=== PATIENT | female | born 1995 | race Caucasian/White ===

== ENCOUNTER 2016-09-02 15:20 | Outpatient (CLI) | payer MEDICAID ==
[~2016-09-02] VITALS: Ht 160 cm; Wt 78.6 kg
[~2016-09-02 15:20] MED LIST: ACET500C5 PO; PREN1TAB49; [UNRECOGNIZED DRUG - REMARK]
--- NOTE | 2016-09-02 16:50 | RADRPT ---
PROCEDURE: OB ultrasound for Biophysical Profile. CLINICAL INDICATION: induced hypertension. TECHNIQUE: Multiple sonographic images of the gravid uterus were obtained. COMPARISON: 05/18/2016. FINDINGS: There is a single live intrauterine in cephalic presentation with heart motion of 14 4 beats per minute. GIRISH is 18.04 cm, which is within normal limits. The placenta is located within the fundus and is without evidence of previa or abruption. Biophysical profile is as follows: Movement: 2 Tone:2 Breathin Fluid:2 IMPRESSION: Normal biophysical profile. RPTAT: HLST .Chante Ponce MD, Date Time Electronically viewed and signed by .Chante Ponce MD, MD on 09/02/2016 16:49 .T/
[2016-09-02 17:02] VITALS: Ht 160 cm; Wt 78.6 kg
[2016-09-02 17:03] VITALS: BP 139/83; PULSE 100; RESP 18
[2016-09-02 17:16] LABS: BASOPHILS % 0.1 % (0.0-2.0); EOSINOPHILS # 0.1 10^3/ul (0.0-0.5); EOSINOPHILS % 0.9 % (0.0-7.0); HEMATOCRIT 32.6 % (37.0-47.0); HEMOGLOBIN 11.2 g/dl (12.0-16.0); LYMPHOCYTES # 1.4 10^3/ul (0.8-2.9); LYMPHOCYTES % 17.2 % (15.0-51.0); MEAN CORPUSCULAR HEMOGLOBIN 29.8 pg (29.0-33.0); MEAN CORPUSCULAR HGB CONC 34.3 g/dl (32.0-37.0); MEAN CORPUSCULAR VOLUME 86.8 fl (82.0-101.0); MEAN PLATELET VOLUME 10.3 fl (7.4-10.4); MONOCYTE # 0.6 10^3/ul (0.3-0.9); MONOCYTES % 7.8 % (0.0-11.0); NEUTROPHIL # 6.1 10^3/ul (1.6-7.5); PLATELET COUNT 121 10^3/UL (140-440); RED BLOOD COUNT 3.76 10^6/ul (4.20-5.40); RED CELL DISTRIBUTION WIDTH 13.6 % (11.5-14.5); UNCORRECTED WBC 8.3 10^3/ul (4.8-10.8); WHITE BLOOD COUNT 8.3 10^3/ul (4.8-10.8)
[2016-09-02 17:17] LABS: CONDITION 1
[2016-09-02 17:24] LABS: ALBUMIN 3.2 g/dl (3.3-4.9)
[2016-09-02 17:26] LABS: ADD UMIC YES; URINE BILIRUBIN (Dip) NEGATIVE (NEGATIVE); URINE BLOOD (Dip) TRACE (NEGATIVE); URINE GLUCOSE (Dip) NEGATIVE (NEGATIVE); URINE KETONES (Dip) NEGATIVE (NEGATIVE); URINE LEUKOCYTE ESTERASE (Dip) 1+ (NEGATIVE); URINE NITRITE (Dip) NEGATIVE (NEGATIVE); URINE TOTAL PROTEIN (Dip) 1+ (NEGATIVE); URINE UROBILINOGEN (Dip) 0.2 E.U./dL (0.1-1.0)
[2016-09-02 17:27] LABS: BILIRUBIN,INDIRECT 0.2 mg/dl (0-1.1); BILIRUBIN,TOTAL 0.2 mg/dl (0.2-1.3); CREATININE 0.65 mg/dl (0.44-1.00)
[2016-09-02 17:28] LABS: ALBUMIN/GLOBULIN RATIO 1.06; CALCIUM 8.8 mg/dl (8.4-10.2); TOTAL PROTEIN 6.2 g/dl (6.1-8.1); URIC ACID 5.6 mg/dl (3.1-7.9)
[2016-09-02 17:52] LABS: URINE COLOR YELLOW (YELLOW)
[2016-09-02 17:53] LABS: BACTERIA,URINE MODERATE; SQUAMOUS EPITHELIAL CELL,UR MANY; URINE RBCS 0-2 /HPF (0)
== END 2016-09-02 18:27 | disposition home or self-care (01) ==
LOC: L-D 15:20 → OBT 15:20
PROVIDERS: ATTEND Obstetrics & Gynecology
DX: O26.893 Other specified pregnancy related conditions, third trimester (principal); R03.0 Elevated blood-pressure reading, without diagnosis of hypertension; Z3A.36 36 weeks gestation of pregnancy
CPT/HCPCS: 36415; 76818; 80053; 81001; 84560; 85025; Z7500; 81003; G0463

== ENCOUNTER 2016-09-03 17:49 | Outpatient (CLI) | payer MEDICAID ==
[~2016-09-03] VITALS: Ht 160 cm; Wt 79.2 kg
[2016-09-03 18:04] VITALS: BP 139/85; PULSE 81; RESP 20; Ht 160 cm; Wt 79.2 kg
[2016-09-04 16:19] LABS: SCRET 0.65 mg/dl (0.44-1.00)
== END 2016-09-03 18:50 | disposition home or self-care (01) ==
LOC: OBT 17:49 → L-D 17:49 → OBT 18:50
PROVIDERS: ATTEND Obstetrics & Gynecology
DX: O26.893 Other specified pregnancy related conditions, third trimester (principal); R03.0 Elevated blood-pressure reading, without diagnosis of hypertension; Z3A.36 36 weeks gestation of pregnancy
CPT/HCPCS: 82575

== ENCOUNTER 2016-09-05 10:45 | Inpatient (IN) | payer MEDICAID ==
[~2016-09-05] VITALS: Ht 160 cm; Wt 78.4 kg
[~2016-09-05 10:45] MED LIST changes: -ACET500C5 PO; -[UNRECOGNIZED DRUG - REMARK]
[2016-09-05 10:49] VITALS: RESP 19; Ht 160 cm; Wt 78.4 kg
--- NOTE | 2016-09-05 11:38 | RADRPT ---
PROCEDURE: OB ultrasound for biophysical profile CLINICAL INDICATION: Hypertension. Biophysical profile. . TECHNIQUE: Multiple sonographic images of the pelvis were obtained. Transabdominal view of the gr avid uterus are available for review. The images were reviewed on a PACS workstation. COMPARISON: 09/02/2016 FINDINGS: breathing movement = 2/2 tone = 2/2 motion = 2/2 GIRISH = 2/2 GIRISH = 13.6 cm Single intrauterine gestation is identified in cephalic position. Placenta is fundal without evidenc e for abruption or previa. heart rate is 146 bpm. IMPRESSION: 1. Single live intrauterine gestation. 2. Biophysical profile = 8/8. 3. GIRISH = 13.6 cm. RPTAT: PP .Pipo Joshi MD, Date Time Electronically viewed and signed by .Pipo Joshi MD, on 09/05/2016 11:37 .R/
[2016-09-05 11:39] LABS: BASOPHILS % 0.3 % (0.0-2.0); EOSINOPHILS # 0.1 10^3/ul (0.0-0.5); EOSINOPHILS % 0.9 % (0.0-7.0); HEMATOCRIT 35.1 % (37.0-47.0); HEMOGLOBIN 11.9 g/dl (12.0-16.0); LYMPHOCYTES # 1.6 10^3/ul (0.8-2.9); MEAN CORPUSCULAR HEMOGLOBIN 29.5 pg (29.0-33.0); MEAN CORPUSCULAR HGB CONC 33.9 g/dl (32.0-37.0); MEAN PLATELET VOLUME 10.4 fl (7.4-10.4); MONOCYTE # 0.8 10^3/ul (0.3-0.9); MONOCYTES % 8.7 % (0.0-11.0); NEUTROPHIL # 6.5 10^3/ul (1.6-7.5); NEUTROPHILS % 72.1 % (39.0-77.0); PLATELET COUNT 130 10^3/UL (140-440); RED BLOOD COUNT 4.03 10^6/ul (4.20-5.40); RED CELL DISTRIBUTION WIDTH 13.8 % (11.5-14.5); UNCORRECTED WBC 9.1 10^3/ul (4.8-10.8); WHITE BLOOD COUNT 9.1 10^3/ul (4.8-10.8)
[2016-09-05 11:40] LABS: CONDITION 1
[2016-09-05 11:47] LABS: INR 0.9; PROTIME 12.1 Sec (12.2-14.2); PT RATIO 0.9
[2016-09-05 11:48] LABS: ALBUMIN 3.2 g/dl (3.3-4.9)
[2016-09-05 11:49] LABS: POTASSIUM 4.3 mmol/L (3.5-5.1)
[2016-09-05 11:51] LABS: ALBUMIN/GLOBULIN RATIO 1.03; BILIRUBIN,INDIRECT 0.2 mg/dl (0-1.1); BILIRUBIN,TOTAL 0.2 mg/dl (0.2-1.3); CREATININE 0.57 mg/dl (0.44-1.00); TOTAL PROTEIN 6.3 g/dl (6.1-8.1)
[2016-09-05 11:52] LABS: CALCIUM 8.8 mg/dl (8.4-10.2); URIC ACID 5.4 mg/dl (3.1-7.9)
[2016-09-05 11:55] LABS: PARTIAL THROMBOPLASTIN TIME 24.7 Sec (25.0-35.0)
[2016-09-05 12:03] LABS: ADD UMIC YES; URINE BILIRUBIN (Dip) NEGATIVE (NEGATIVE); URINE BLOOD (Dip) TRACE (NEGATIVE); URINE COLOR LT. YELLOW (YELLOW); URINE GLUCOSE (Dip) NEGATIVE (NEGATIVE); URINE KETONES (Dip) NEGATIVE (NEGATIVE); URINE LEUKOCYTE ESTERASE (Dip) 2+ (NEGATIVE); URINE NITRITE (Dip) POSITIVE (NEGATIVE); URINE TOTAL PROTEIN (Dip) 1+ (NEGATIVE); URINE UROBILINOGEN (Dip) 0.2 E.U./dL (0.1-1.0)
--- NOTE | 2016-09-05 12:19 | TRIAGE ---
OB Triage Datetime Report Generated by CPN: 09/05/2016 12:18 Datetime: 09/05/2016 11:44 Stage of : OB Triage Maternal Assessment Level of Consciousness: Fully Conscious DTR's/Clonus: DTRs 1+ Headache: Denies Nausea/Vomiting: Denies RUQ Epigastric Pain: Denies Labor Evaluation Frequency: IRREGULAR (Annotations: WITH SOME IRRITABILITY) Monitor Mode: External Quality: Mild Pattern: Normal: <= 5 Contractions in 10 Minutes Resting Tone Dowling: Relaxed Heart Rate FHR Baseline Rate: 135 Monitor Mode: External US Variability: Moderate 6-25 bpm Accelerations: 15X15 Decelerations: None Category: Category I Pain Assessment Pain Scale: 0 Pain Presence: None/Denies Pain Type: N/A Pain Goal: 3 Membrane Status: Intact Datetime: 09/05/2016 11:33 Vaginal Exam Dilatation (cms): 0.0 Effacement (%): 0 Station: -4 Exam By: RRAMIREZ,RN Vaginal Bleeding: None Cervix, Consistency: Firm Cervix, Position: Posterior Datetime: 09/05/2016 11:30 Stage of : OB Triage Maternal Assessment Level of Consciousness: Fully Conscious DTR's/Clonus: DTRs 1+ Headache: Denies Nausea/Vomiting: Denies RUQ Epigastric Pain: Denies Labor Evaluation Frequency: IRREGULAR Monitor Mode: External Quality: Mild Pattern: Normal: <= 5 Contractions in 10 Minutes Resting Tone Dowling: Relaxed Heart Rate FHR Baseline Rate: 135 Monitor Mode: External US Variability: Moderate 6-25 bpm Accelerations: 15X15 Decelerations: None Category: Category I Pain Assessment Pain Scale: 0 Pain Presence: None/Denies Pain Type: N/A Pain Goal: 3 Membrane Status: Intact Datetime: 09/05/2016 11:00 Maternal Assessment Level of Consciousness: Fully Conscious DTR's/Clonus: DTRs 1+ Headache: Denies Blurred Vision: No Nausea/Vomiting: Denies RUQ Epigastric Pain: Denies Facial Edema: None Labor Evaluation Frequency: IRRITABULITY Monitor Mode: External Duration (sec)2399: 20-30 Quality: Mild Pattern: Normal: <= 5 Contractions in 10 Minutes Resting Tone Dowling: Relaxed Heart Rate FHR Baseline Rate: 135 Monitor Mode: External US Variability: Moderate 6-25 bpm Accelerations: 15X15 Decelerations: None Category: Category I Pain Assessment Pain Scale: 0 Pain Presence: None/Denies Pain Type: N/A Pain Goal: 3 Membrane Status: Intact Datetime: 09/05/2016 10:48 Assessment Type: Triage Maternal Assessment Level of Consciousness: Fully Conscious DTR's/Clonus: DTRs 2+; No Clonus Headache: Denies Blurred Vision: No Respiratory Effort: Unlabored; Regular Rhythm; Equal Expansion Breath Sounds, Left: Clear and Equal Breath Sounds, Right: Clear and Equal Nausea/Vomiting: Denies RUQ Epigastric Pain: Denies Lower Extremities Edema: None Degree: None Upper Extremities Edema: None Degree: None Facial Edema: None Fall Risk Assessment History of Falling: (0) No Secondary Diagnosis: (0) No Ambulatory Aid: (0) Bedrest/Nurse Assist IV Therapy: (0) No Gait: (0) Normal/Bedrest/Immobile Mental Status: (0) Oriented to Own Ability Fall Score: 0 Fall Risk Score Definition: No Risk: No action required Datetime: 09/05/2016 10:40 Time of Arrival: 09/05/2016 10:47 EGA: 36.5 Arrived By: Ambulatory Arrived From: Home Chief Complaint: PT CAME IN FOR 24HR URINE RESULTS DUE TO HIGH BLOOD PRESSURE IN THE PREVIOUS VISI TS. PT DENIES ANY SWELLING, HEADACHE, EPIGASTRIC PAIN OR ANY GENERALIZED SWELLING AT THIS TIME. Movement: Present Contractions: Denies/Absent Rupture of Membranes: Denies Vaginal Discharge: Denies Recent Sexual Intercouse: Denies Abdominal Trauma: Not Applicable Patient Complaints: Other Additional Patient Complaints: NONE Time Provider Notified: 09/05/2016 11:00 Provider Notified: [facility] Initial Plan: MONITOR AND BPP Datetime: 09/03/2016 17:58 Assessment Type: Triage Maternal Assessment Level of Consciousness: Fully Conscious Maternal Assessment Level of Consciousness: Fully Conscious DTR's/Clonus: DTRs 2+ DTR's/Clonus: DTRs 2+; No Clonus Headache: Denies Headache: Denies Blurred Vision: No Blurred Vision: No Respiratory Effort: Unlabored; Regular Rhythm; Equal Expansion Breath Sounds, Left: Clear and Equal Breath Sounds, Right: Clear and Equal Nausea/Vomiting: Denies Nausea/Vomiting: Denies RUQ Epigastric Pain: Denies RUQ Epigastric Pain: Denies Lower Extremities Edema: Bilateral Lower Extremities Degree: 1+ Upper Extremities Edema: None Facial Edema: None Facial Edema: None Fall Risk Assessment History of Falling: (0) No Secondary Diagnosis: (0) No Ambulatory Aid: (0) Bedrest/Nurse Assist IV Therapy: (0) No Gait: (0) Normal/Bedrest/Immobile Mental Status: (0) Oriented to Own Ability Fall Score: 0 Fall Risk Score Definition: No Risk: No action required Pain Presence: None/Denies Datetime: 09/02/2016 18:19 Time of Arrival: 09/03/2016 17:45 EGA: 36.3 Chief Complaint: 24 hour urine collection Movement: Present Contractions: Denies/Absent Rupture of Membranes: Denies Vaginal Bleeding: None Vaginal Discharge: Denies Recent Sexual Intercouse: Denies Abdominal Trauma: Not Applicable Patient Complaints: None Time Provider Notified: 09/03/2016 18:20 Provider Notified: [facility] Datetime: 09/02/2016 16:37 Monitor Mode: External US Datetime: 09/02/2016 16:24 Stage of : OB Triage Labor Evaluation Frequency: irregular Monitor Mode: External Duration (sec)2399: 40-60 Quality: Mild Resting Tone Dowling: Relaxed Heart Rate FHR Baseline Rate: 135 Monitor Mode: External US Variability: Moderate 6-25 bpm Accelerations: 15X15 Decelerations: None Category: Category I Datetime: 09/02/2016 15:39 Assessment Type: Triage Maternal Assessment Level of Consciousness: Fully Conscious DTR's/Clonus: DTRs 2+; No Clonus Headache: Denies Blurred Vision: No Respiratory Effort: Unlabored Breath Sounds, Left: Clear and Equal Breath Sounds, Right: Clear and Equal Nausea/Vomiting: Denies RUQ Epigastric Pain: Denies Lower Extremities Edema: None Degree: None Upper Extremities Edema: None Degree: None Facial Edema: None Fall Risk Assessment History of Falling: (0) No Secondary Diagnosis: (0) No Ambulatory Aid: (0) Bedrest/Nurse Assist IV Therapy: (0) No Gait: (0) Normal/Bedrest/Immobile Mental Status: (0) Oriented to Own Ability Fall Score: 0 Fall Risk Score Definition: No Risk: No action required Datetime: 09/02/2016 15:35 Time of Arrival: 09/02/2016 15:13 EGA: 36.2 Arrived By: Ambulatory Arrived From: Dr. Hughes Chief Complaint: Sent from clinic to r/o [facility] Movement: Present Contractions: Denies/Absent Rupture of Membranes: Denies Vaginal Bleeding: None Vaginal Discharge: Denies Recent Sexual Intercouse: Denies Abdominal Trauma: Not Applicable Patient Complaints: Other Time Provider Notified: 09/02/2016 15:45 Provider Notified: [facility] Initial Plan: VS, EFM, BP STUDIES, BPP, CBC, CMP, URIC ACID, UA Datetime: 09/02/2016 15:30 Stage of : OB Triage Monitor Mode: External Monitor Mode: External US Datetime: 09/02/2016 15:27 Stage of : OB Triage
[2016-09-05 12:40] LABS: SQUAMOUS EPITHELIAL CELL,UR MODERATE; URINE RBCS 0-2 /HPF (0)
[2016-09-05 12:41] LABS: BACTERIA,URINE MODERATE
[2016-09-05] MEDS: LACTATED RINGER'S 1,000 ML IV SCH ×2 (13:05→19:59)
[2016-09-05 13:58] LABS: FIBRIN SPLIT PRODUCT <10 ug/ml (<10)
--- NOTE | 2016-09-05 18:12 | HP ---
Date/Time of Note Date/Time of Note DATE: 09/05/16 TIME: 18:03 OB - History Hx of Present Free Text/Dictation 21 years old female 4 AB 3 P0 with EDC of 09/28/16 admitted to [facility] referred from [facility] for rule out PIH' this patient has been under the care of the [facility] recently she has developed elevated blood pressure low platelet referred to [facility] for PIH for Chief Complaint: 36 weeks 5 day rule out -induced hypertension Estimated Due Date: Sep 28, 2016 : 4 Para: 0 Therapeutic : 3 Care: Limited Care Ultrasounds: Other (unavailable) Obstetrical Complications: Gestational Hypertension Medical Complications: None Past Family/Social History * Past Medical, Surgical, Family and Obstetric Histories reviewed from chart. Rubella: immune RPR/VDRL: Negative GBS Status: Unknown HBsAG: Unknown OB Admission Exam Vital Signs Vital Signs Vital Signs Date Time Temp Pulse Resp B/P Pulse Ox O2 Delivery O2 Flow Rate FiO2 09/05/16 10:49 98.3 19 99 Room Air Physical Exam HEENT: WNL Heart: Rhythm Normal Lungs: Clear, Equal Abdomen: WNL Extremities: Normal Reflexes: Normal Cervical Dilatation: None Effacement: 0% Station: -2 Heart Rate: 130's Accelerations: Accelerations Present Decelerations: No Decelerations Varibility: Moderate Contractions on Admission: >10 Minutes Apart Intensity: Mild Last 72 hours Lab Results CBC & BMP 09/05/16 11:00 Liver Function Test 09/05/16 11:00 Alanine Aminotransferase (ALT/SGPT) 24 Albumin 3.2 L Alkaline Phosphatase 190 H Aspartate Amino Transf (AST/SGOT) 27 Direct Bilirubin 0.00 Total Protein 6.3 LESLI TRIPLETT MD Sep 05, 2016 18:12
--- NOTE | 2016-09-05 18:17 | PN ---
Date/Time of Note Date/Time of Note DATE: 09/05/16 TIME: 18:13 OB Subjective Subjective Subjective Patient sitting in her bed having dinner has no complain of headache blurry vision or gastric pain monitor indicating at the recovery 1 heart tracing her last blood pressure 142/92, telephone perinatology consult recommended repeat platelet count in the morning if if number is declining attempt for the delivery otherwise recommend delivery at 37 weeks LESLI TRIPLETT MD Sep 05, 2016 18:17
[2016-09-06] MEDS: LACTATED RINGER'S 1,000 ML IV SCH ×4 (03:52→23:17)
[2016-09-06 06:30] LABS: BASOPHILS % 0.3 % (0.0-2.0); EOSINOPHILS # 0.1 10^3/ul (0.0-0.5); EOSINOPHILS % 0.6 % (0.0-7.0); HEMATOCRIT 34.8 % (37.0-47.0); HEMOGLOBIN 11.9 g/dl (12.0-16.0); LYMPHOCYTES # 1.4 10^3/ul (0.8-2.9); LYMPHOCYTES % 12.3 % (15.0-51.0); MEAN CORPUSCULAR HEMOGLOBIN 29.8 pg (29.0-33.0); MEAN CORPUSCULAR HGB CONC 34.2 g/dl (32.0-37.0); MEAN PLATELET VOLUME 10.3 fl (7.4-10.4); MONOCYTE # 0.7 10^3/ul (0.3-0.9); MONOCYTES % 6.6 % (0.0-11.0); NEUTROPHILS % 80.2 % (39.0-77.0); PLATELET COUNT 121 10^3/UL (140-440); RED CELL DISTRIBUTION WIDTH 13.4 % (11.5-14.5); UNCORRECTED WBC 11.2 10^3/ul (4.8-10.8); WHITE BLOOD COUNT 11.2 10^3/ul (4.8-10.8)
[2016-09-06 06:36] LABS: CONDITION 1
[2016-09-06] MEDS ORDERED: DOCUSATE SODIUM 100 MG CAP PO SCH (09:00)
[2016-09-06] MEDS ORDERED: MULTIVIT/MIN/FOLATE/IRON/PREN TAB PO SCH (09:00)
[2016-09-06] MEDS ORDERED: FERROUS SULFATE (EC) 325 MG TAB PO SCH (09:00)
--- NOTE | 2016-09-06 09:16 | RADRPT ---
PROCEDURE: US OB. CLINICAL INDICATION: Size and dates , hypertension TECHNIQUE: Multiple sonographic images of the pelvis and gravid uterus were obtained. The images were reviewed on a PACS workstation. COMPARISON: 09/05/2016 FINDINGS: There is a single viable intrauterine gestation. Cardiac activity is present with 140 beats per min francesca. There is a vertex presentation. The placenta is fundal. There is no evidence for an abruption or placenta previa. Measurements were made in order to determine age. The results are as follows: BPD =8.9 cm HC =31.8 cm AC =32.6 cm FL =6.8 cm Estimated gestational age of approximately 35 weeks and 5 days based on ultrasound measurements. Clinical age: 37 weeks and 3 days. The estimated date of delivery is 10/06/16, based on ultrasound measurements. The EFW = 2804 g, 21.3%, based on LMP age. RPTAT: AA IMPRESSION: Single viable intrauterine gestation of approximately 35 weeks and 5 days based on ultrasound measu rements. .Farooq Ly MD, Date Time Electronically viewed and signed by .Farooq Ly MD, on 09/06/2016 09:15 .S/
[2016-09-06] MEDS ORDERED: LIDOCAINE 1% (MPF) 30 ML INJ INJ PRN (09:30)
[2016-09-06] MEDS ORDERED: METHYLERGONOVINE 0.2 MG INJ IM PRN (09:30)
[2016-09-06] MEDS ORDERED: ACETAMINOPHEN/CODEINE #3 TAB PO PRN (09:30)
[2016-09-06] MEDS ORDERED: OXYTOCIN 30 UNITS/LR 500 ML IV PRN (09:30)
[2016-09-06] MEDS ORDERED: IBUPROFEN 600 MG TAB PO PRN (09:30)
[2016-09-06] MEDS ORDERED: OXYCODONE/ASPIRIN (4.88/325) TAB PO PRN (09:30)
[2016-09-06] MEDS ORDERED: OXYTOCIN 30 UNITS/LR 500 ML IV SCH ×2 (09:30)
[2016-09-06] MEDS ORDERED: CARBOPROST 250 MCG INJ IM PRN (09:30)
[2016-09-06] MEDS ORDERED: MISOPROSTOL 200 MCG TAB PR PRN (09:30)
[2016-09-06] MEDS ORDERED: DINOPROSTONE 10 MG VAG SUPP VAG ONE ×2 (10:00→23:30)
[2016-09-06] MEDS ORDERED: AMPICILLIN 2 GM/NS (PMX) 100 ML IV ONE (10:00)
[2016-09-06] MEDS ORDERED: LACTATED RINGER'S 1,000 ML IV PRN (13:00)
[2016-09-06] MEDS: AMPICILLIN 1 GM/NS (PMX) 50 ML IV SCH ×3 (15:49→21:58)
[2016-09-06] MEDS ORDERED: MAGNESIUM SULFATE 4 GM/100 ML 100 ML ONE (18:08)
[2016-09-06] MEDS ORDERED: MAGNESIUM SULFATE 4 GM/100 ML 100 ML IVPB ONE (18:30)
[2016-09-06] MEDS: MAGNESIUM SULFATE 20 GM/500 ML 500 ML IV SCH (18:43)
[2016-09-07] MEDS: AMPICILLIN 1 GM/NS (PMX) 50 ML IV SCH ×2 (02:05→06:01)
[2016-09-07] MEDS: MAGNESIUM SULFATE 20 GM/500 ML 500 ML IV SCH ×2 (05:13→15:02)
[2016-09-07 09:18] LABS: EOSINOPHILS % 0.2 % (0.0-7.0); HEMATOCRIT 34.5 % (37.0-47.0); HEMOGLOBIN 11.8 g/dl (12.0-16.0); LYMPHOCYTES # 1.3 10^3/ul (0.8-2.9); LYMPHOCYTES % 10.6 % (15.0-51.0); MEAN CORPUSCULAR HEMOGLOBIN 29.9 pg (29.0-33.0); MEAN CORPUSCULAR HGB CONC 34.2 g/dl (32.0-37.0); MEAN CORPUSCULAR VOLUME 87.4 fl (82.0-101.0); MEAN PLATELET VOLUME 10.9 fl (7.4-10.4); MONOCYTE # 0.7 10^3/ul (0.3-0.9); MONOCYTES % 5.9 % (0.0-11.0); NEUTROPHIL # 10.3 10^3/ul (1.6-7.5); NEUTROPHILS % 83.3 % (39.0-77.0); PLATELET COUNT 127 10^3/UL (140-440); RED BLOOD COUNT 3.95 10^6/ul (4.20-5.40); RED CELL DISTRIBUTION WIDTH 13.8 % (11.5-14.5); UNCORRECTED WBC 12.3 10^3/ul (4.8-10.8); WHITE BLOOD COUNT 12.3 10^3/ul (4.8-10.8)
[2016-09-07 09:21] LABS: CONDITION 1
[2016-09-07] MEDS: LACTATED RINGER'S 1,000 ML IV SCH ×2 (14:37→19:20)
[2016-09-07] MEDS ORDERED: DINOPROSTONE 10 MG VAG SUPP VAG ONE (15:00)
[2016-09-08] MEDS: MAGNESIUM SULFATE 20 GM/500 ML 500 ML IV SCH ×2 (00:11→16:19)
[2016-09-08] MEDS: LACTATED RINGER'S 1,000 ML IV SCH ×3 (03:00→16:18)
[2016-09-08] MEDS: OXYTOCIN 30 UNITS/LR 500 ML IV SCH ×2 (09:00→16:19)
[2016-09-09] MEDS: MAGNESIUM SULFATE 20 GM/500 ML 500 ML IV SCH ×3 (01:10→21:48)
[2016-09-09 01:45] LABS: ADD UMIC YES; URINE BILIRUBIN (Dip) NEGATIVE (NEGATIVE); URINE BLOOD (Dip) 3+ (NEGATIVE); URINE COLOR LT. YELLOW (YELLOW); URINE GLUCOSE (Dip) NEGATIVE (NEGATIVE); URINE KETONES (Dip) NEGATIVE (NEGATIVE); URINE LEUKOCYTE ESTERASE (Dip) 1+ (NEGATIVE); URINE NITRITE (Dip) POSITIVE (NEGATIVE); URINE TOTAL PROTEIN (Dip) TRACE (NEGATIVE); URINE UROBILINOGEN (Dip) 0.2 E.U./dL (0.1-1.0)
[2016-09-09 01:45] LABS: BASOPHILS % 0.1 % (0.0-2.0); EOSINOPHILS # 0.1 10^3/ul (0.0-0.5); EOSINOPHILS % 0.6 % (0.0-7.0); HEMATOCRIT 34.4 % (37.0-47.0); HEMOGLOBIN 11.7 g/dl (12.0-16.0); LYMPHOCYTES # 1.1 10^3/ul (0.8-2.9); LYMPHOCYTES % 12.1 % (15.0-51.0); MEAN CORPUSCULAR HEMOGLOBIN 29.6 pg (29.0-33.0); MEAN CORPUSCULAR HGB CONC 34.2 g/dl (32.0-37.0); MEAN CORPUSCULAR VOLUME 86.5 fl (82.0-101.0); MONOCYTE # 0.6 10^3/ul (0.3-0.9); MONOCYTES % 6.7 % (0.0-11.0); NEUTROPHIL # 7.6 10^3/ul (1.6-7.5); NEUTROPHILS % 80.5 % (39.0-77.0); PLATELET COUNT 136 10^3/UL (140-440); RED BLOOD COUNT 3.97 10^6/ul (4.20-5.40); RED CELL DISTRIBUTION WIDTH 13.9 % (11.5-14.5); UNCORRECTED WBC 9.4 10^3/ul (4.8-10.8); WHITE BLOOD COUNT 9.4 10^3/ul (4.8-10.8)
[2016-09-09 01:48] LABS: INR 0.97; PARTIAL THROMBOPLASTIN TIME 26.6 Sec (25.0-35.0); PROTIME 12.9 Sec (12.2-14.2)
[2016-09-09 01:49] LABS: ALBUMIN 2.8 g/dl (3.3-4.9)
[2016-09-09 01:50] LABS: POTASSIUM 3.7 mmol/L (3.5-5.1)
[2016-09-09 01:52] LABS: BILIRUBIN,INDIRECT 0.2 mg/dl (0-1.1); BILIRUBIN,TOTAL 0.2 mg/dl (0.2-1.3); CONDITION 1; CREATININE 0.59 mg/dl (0.44-1.00)
[2016-09-09 01:53] LABS: ALBUMIN/GLOBULIN RATIO 0.87; CALCIUM 6.9 mg/dl (8.4-10.2); URIC ACID 6.1 mg/dl (3.1-7.9)
[2016-09-09 02:48] LABS: BACTERIA,URINE MANY; SQUAMOUS EPITHELIAL CELL,UR FEW; URINE RBCS 0-2 /HPF (0)
[2016-09-09] MEDS: LACTATED RINGER'S 1,000 ML IV SCH ×4 (04:00→21:50)
[2016-09-09] MEDS: BUTORPHANOL 2 MG INJ IV PRN (09:18)
[2016-09-09] MEDS ORDERED: DEXTROSE 5%-LR 1,000 ML IV PRN (14:30)
[2016-09-09 17:52] LABS: BASOPHILS % 0.1 % (0.0-2.0); HEMATOCRIT 36.8 % (37.0-47.0); HEMOGLOBIN 12.5 g/dl (12.0-16.0); LYMPHOCYTES # 0.8 10^3/ul (0.8-2.9); LYMPHOCYTES % 5.6 % (15.0-51.0); MEAN CORPUSCULAR HEMOGLOBIN 29.5 pg (29.0-33.0); MEAN CORPUSCULAR VOLUME 86.9 fl (82.0-101.0); MEAN PLATELET VOLUME 9.6 fl (7.4-10.4); MONOCYTE # 0.5 10^3/ul (0.3-0.9); MONOCYTES % 3.7 % (0.0-11.0); NEUTROPHIL # 12.6 10^3/ul (1.6-7.5); NEUTROPHILS % 90.6 % (39.0-77.0); PLATELET COUNT 144 10^3/UL (140-440); RED BLOOD COUNT 4.24 10^6/ul (4.20-5.40); RED CELL DISTRIBUTION WIDTH 14.1 % (11.5-14.5); UNCORRECTED WBC 13.9 10^3/ul (4.8-10.8); WHITE BLOOD COUNT 13.9 10^3/ul (4.8-10.8)
[2016-09-09 18:00] LABS: CONDITION 1; LH ANALYZER COMMENTS 1
[2016-09-09 18:15] LABS: ALBUMIN 3.2 g/dl (3.3-4.9)
[2016-09-09 18:16] LABS: INR 0.91; POTASSIUM 4.1 mmol/L (3.5-5.1); PROTIME 12.2 Sec (12.2-14.2)
[2016-09-09 18:17] LABS: PARTIAL THROMBOPLASTIN TIME 26.9 Sec (25.0-35.0)
[2016-09-09 18:18] LABS: ALBUMIN/GLOBULIN RATIO 0.94; BILIRUBIN,INDIRECT 0.2 mg/dl (0-1.1); BILIRUBIN,TOTAL 0.2 mg/dl (0.2-1.3); CREATININE 0.65 mg/dl (0.44-1.00); TOTAL PROTEIN 6.6 g/dl (6.1-8.1)
[2016-09-09 18:19] LABS: CALCIUM 6.8 mg/dl (8.4-10.2); URIC ACID 6.8 mg/dl (3.1-7.9)
[2016-09-09] MEDS ORDERED: FENTAnyl 2MCG/ML-ROPIV 0.2% 100 ML ONE (19:11)
[2016-09-09] MEDS ORDERED: DIPHENHYDRAMINE 50 MG INJ IV PRN (20:00)
[2016-09-09] MEDS ORDERED: ZOLPIDEM 5 MG TAB PO PRN (20:00)
[2016-09-09] MEDS ORDERED: ONDANSETRON 4 MG INJ IV PRN (20:00)
[2016-09-09] MEDS ORDERED: FENTAnyl 2MCG/ML-ROPIV 0.2% 100 ML BAG EPI SCH (20:00)
[2016-09-09] MEDS ORDERED: PROCHLORPERAZINE 10 MG INJ IV PRN (20:00)
[2016-09-09] MEDS ORDERED: KETOROLAC 30 MG INJ IV PRN (20:00)
[2016-09-09] MEDS ORDERED: NALOXONE (0.4 MG/ML) INJ IV PRN (20:00)
[2016-09-09] MEDS ORDERED: HYDROmorphONE 1 MG/ML SYG IV PRN ×2 (20:00)
[2016-09-09] MEDS ORDERED: AMPICILLIN 2 GM/NS (PMX) 100 ML IV ONE (20:30)
[2016-09-10] VITALS (23 sets, daily range): BP systolic 114–165; BP diastolic 62–95; PULSE 58–86; RESP 16–20
[2016-09-10] MEDS: AMPICILLIN 1 GM/NS (PMX) 50 ML IV SCH ×2 (01:02→05:02)
[2016-09-10] MEDS: OXYTOCIN 30 UNITS/LR 500 ML IV SCH ×5 (04:05→20:49)
[2016-09-10] MEDS: BUTORPHANOL 2 MG INJ IV PRN (06:51)
[2016-09-10] MEDS ORDERED: OXYTOCIN 30 UNITS/LR 500 ML IV SCH (07:20)
[2016-09-10] MEDS ORDERED: LACTATED RINGER'S 1,000 ML IV* SCH (07:20)
--- NOTE | 2016-09-10 07:20 | LDN ---
Date/Time of Note Date/Time of Note DATE: 09/10/16 TIME: 07:01 Delivery Summary s/p uncomplicated of live male , 9/9 RML repaired in a routine fashion w 2 chromic No nuchal cord placenta delivered spontaneously PPH , EBL 500mL, cytotec given rectally. Uterus became firm and bleeding stopped. Placenta Delivered: Spontaneously Estimated blood loss: 500 Sponge & Needle done & correct: Yes All needle counts correct: Yes Any foreign bodies felt in the: No Problems: Infant Delivery Information Apgars 1 Minute: 9 5 Minute: 9 Suctioning Nose & mouth suctioned at noris: Yes Umbilical Cord Umbilical cord with: 3 Vessels Cord presentations: no nuchal cord Cord Blood was obtained: Yes CHANEL SAM MD Sep 10, 2016 07:11
[2016-09-10] MEDS ORDERED: OXYTOCIN 30 UNITS/LR 500 ML IV PRN ×2 (07:30→08:00)
[2016-09-10] MEDS ORDERED: MISOPROSTOL 200 MCG TAB PR PRN ×2 (07:30→08:00)
[2016-09-10] MEDS ORDERED: CARBOPROST 250 MCG INJ IM PRN ×2 (07:30→08:00)
[2016-09-10] MEDS: LACTATED RINGER'S 1,000 ML IV* SCH ×3 (07:58→23:58)
[2016-09-10] MEDS ORDERED: ONDANSETRON 4 MG INJ IV PRN (08:00)
[2016-09-10] MEDS ORDERED: DIBUCAINE 1% 30 GM OINT PR PRN (08:00)
[2016-09-10] MEDS ORDERED: SENNA/DOCUSATE NA (8.6MG/50MG) TAB PO PRN (08:00)
[2016-09-10] MEDS ORDERED: METHYLERGONOVINE 0.2 MG INJ IM PRN (08:00)
[2016-09-10] MEDS ORDERED: DIPHENHYDRAMINE 50 MG INJ IV PRN (08:00)
[2016-09-10] MEDS ORDERED: ACETAMINOPHEN 325 MG TAB PO PRN (08:00)
[2016-09-10] MEDS ORDERED: BENZOCAINE 20% 56 ML SPRAY TOP PRN (08:00)
[2016-09-10] MEDS ORDERED: LANOLIN 7 GM TUBE TOP PRN (08:00)
[2016-09-10] MEDS ORDERED: SENNA/DOCUSATE NA (8.6MG/50MG) TAB PO SCH (09:00)
[2016-09-10] MEDS: LABETALOL 100 MG TAB PO SCH ×2 (09:10→20:49)
[2016-09-10] MEDS: MAGNESIUM SULFATE 20 GM/500 ML 500 ML IV SCH (18:38)
[2016-09-11] VITALS (13 sets, daily range): BP systolic 106–143; BP diastolic 59–76; PULSE 68–87; RESP 16–19
[2016-09-11] MEDS: IBUPROFEN 600 MG TAB PO SCH ×5 (00:03→23:56)
[2016-09-11] MEDS: LACTATED RINGER'S 1,000 ML IV* SCH (05:38)
[2016-09-11 08:27] LABS: BASOPHILS % 0.2 % (0.0-2.0); EOSINOPHILS # 0.1 10^3/ul (0.0-0.5); EOSINOPHILS % 0.5 % (0.0-7.0); HEMATOCRIT 29.8 % (37.0-47.0); LYMPHOCYTES # 1.4 10^3/ul (0.8-2.9); LYMPHOCYTES % 11.4 % (15.0-51.0); MEAN CORPUSCULAR HEMOGLOBIN 29.6 pg (29.0-33.0); MEAN CORPUSCULAR HGB CONC 33.6 g/dl (32.0-37.0); MEAN PLATELET VOLUME 9.3 fl (7.4-10.4); MONOCYTES % 8.1 % (0.0-11.0); NEUTROPHIL # 9.7 10^3/ul (1.6-7.5); NEUTROPHILS % 79.8 % (39.0-77.0); PLATELET COUNT 106 10^3/UL (140-440); RED BLOOD COUNT 3.38 10^6/ul (4.20-5.40); RED CELL DISTRIBUTION WIDTH 14.2 % (11.5-14.5); UNCORRECTED WBC 12.1 10^3/ul (4.8-10.8); WHITE BLOOD COUNT 12.1 10^3/ul (4.8-10.8)
[2016-09-11 08:41] LABS: CONDITION 1
[2016-09-11] MEDS: LABETALOL 100 MG TAB PO SCH ×2 (09:00→21:12)
--- NOTE | 2016-09-11 12:53 | PN ---
Date/Time of Note Date/Time of Note DATE: 09/11/16 TIME: 12:51 OB Subjective Subjective Subjective day 1 Afebrile vital sign is stable blood pressures running in 120s and 30s over 76-80 's magnesium sulfate discontinue ambulation recommended extremity normal reflexes normal LESLI TRIPLETT MD Sep 11, 2016 12:53
[2016-09-11] MEDS ORDERED: INFLUENZA VIRUS VACCINE 0.5 ML (DISPENSING) IM* ONE (16:30)
[2016-09-12 04:30] VITALS: BP 132/80; PULSE 69; RESP 18
[2016-09-12] MEDS: IBUPROFEN 600 MG TAB PO SCH (05:48)
[2016-09-12 08:45] VITALS: BP 131/74; PULSE 65; RESP 16
[2016-09-12] MEDS ORDERED: DIPHTH/TET/ACEL PERTUSS (ADULT) 0.5 ML VIAL IM* ONE (09:00)
[2016-09-12] MEDS ORDERED: INFLUENZA VIRUS VACCINE 0.5 ML (DISPENSING) IM* ONE (09:00)
[2016-09-12] MEDS: LABETALOL 100 MG TAB PO SCH (09:00)
--- NOTE | 2016-09-12 11:12 | PD.PPDC ---
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
--- NOTE | 2016-09-12 11:14 | DS ---
Date/Time of Note Date/Time of Note DATE: 09/12/16 TIME: 11:13 Obstetrical Discharge Record Final Diagnosis Final Diagnosis: Term delivered Vaginal Delivery Obstetrical Delivery: Spontaneous Condition on Discharge Physical Assessment Last Vitals: Vital sign is stable afebrile abdomen soft uterus firm lochia normal extremity normal home instructions given appointment to the office 2 weeks Voiding: Yes Breast: Soft, non-tender, Filling Fundus: Firm Calf Tenderness: No Patient Condition: Good LESLI TRIPLETT MD Sep 12, 2016 11:14
== END 2016-09-12 12:50 | disposition home or self-care (01) | DRG 775 ==
LOC: OBT 10:45 → L-D 10:45 → OBT 11:40 → OBG 11:42 → L-D 09-06 07:54 → PP1 09-10 09:27
PROVIDERS: ADMIT Obstetrics & Gynecology; ATTEND Obstetrics & Gynecology
PROC: 10E0XZZ Delivery of Products of Conception, External Approach (ICD-10-PCS; principal; 2016-09-10)
PROC: 3E00X4Z Introduction of Serum, Toxoid and Vaccine into Skin and Mucous Membranes, External Approach (ICD-10-PCS; 2016-09-12)
DX: O13.4 Gestational [pregnancy-induced] hypertension without significant proteinuria, complicating childbirth (principal); O60.14X0 Preterm labor third trimester with preterm delivery third trimester, not applicable or unspecified; Z23 Encounter for immunization; Z3A.36 36 weeks gestation of pregnancy; Z37.0 Single live birth
CPT/HCPCS: 62319; 76816; 76818; 80053; 81001; 81003; 83735; 84560; 85025; 85362; 85384; 85610; 85730; 86592; 86850; 86900; 86901; 90686; 90715; 99464; G0463; J0290; J1885; J2590; J3010; J3475; J7120